=== PATIENT | male | born 2000 | race Caucasian/White ===

== ENCOUNTER 2020-02-12 15:26 | Inpatient (IN) | payer OTHER ==
[~2020-02-12] VITALS: Ht 185.4 cm; Wt 82.6 kg
[2020-02-12] MEDS ORDERED: IBUPROFEN 400 MG TABLET PO PRN (18:15)
[2020-02-12] MEDS ORDERED: POLYETHYLENE GLYCOL 3350 17 GM PACKET PO PRN ×2 (18:15→21:00)
[2020-02-12] MEDS ORDERED: OxyCODONE HCL 5 MG IR TABLET PO PRN (18:15)
[2020-02-12] MEDS ORDERED: ONDANSETRON HCL 4 MG TABLET PO PRN ×2 (18:15→21:00)
[2020-02-12 18:20] VITALS: BP 130/68
[2020-02-12] MEDS ORDERED: *PATIENT'S OWN MED [ENTER DRUG, DOSE, FREQUENCY IN COMMENTS] CLINICAL ONE (19:00)
[2020-02-12] MEDS: DOCUSATE SODIUM 100 MG CAPSULE PO SCH (21:00)
[2020-02-12] MEDS ORDERED: DOCUSATE SODIUM 100 MG CAPSULE PO SCH (21:00)
[2020-02-12] MEDS ORDERED: SENNA 187 MG TABLET PO SCH (21:00)
[2020-02-12] MEDS ORDERED: GABAPENTIN 300 MG CAPSULE PO SCH (21:00)
[2020-02-12] MEDS: ACETAMINOPHEN 325 MG TABLET PO SCH (21:13)
[2020-02-12] MEDS: GABAPENTIN 300 MG CAPSULE PO SCH (21:14)
[2020-02-12] MEDS: OxyCODONE HCL 5 MG IR TABLET PO PRN (22:11)
[2020-02-12 23:07] VITALS: BP 131/83
[2020-02-12] MEDS: IBUPROFEN 400 MG TABLET PO PRN (23:07)
[2020-02-13] MEDS: ACETAMINOPHEN 325 MG TABLET PO SCH ×3 (05:43→18:19)
[2020-02-13] MEDS: OxyCODONE HCL 5 MG IR TABLET PO PRN ×4 (05:43→20:46)
[2020-02-13 07:28] VITALS: BP 128/89
[2020-02-13] MEDS ORDERED: ENOXAPARIN SODIUM 40 MG/0.4 ML PF SYRINGE SQ SCH (09:00)
[2020-02-13] MEDS: DOCUSATE SODIUM 100 MG CAPSULE PO SCH ×2 (09:00→20:59)
[2020-02-13] MEDS: GABAPENTIN 300 MG CAPSULE PO SCH ×3 (09:36→20:46)
[2020-02-13] MEDS: ENOXAPARIN SODIUM 40 MG/0.4 ML PF SYRINGE SQ SCH (09:37)
[2020-02-13] MEDS: IBUPROFEN 400 MG TABLET PO PRN (13:18)
[2020-02-13 14:03] LABS: BASOPHILS % (AUTO) 0.5 % (0.0-2.0); EOSINOPHILS % (AUTO) 1.3 % (1.0-6.0); HEMATOCRIT 37.1 % (41-53); HEMOGLOBIN 12.7 g/dL (13.5-17.5); LYMPHOCYTES # (AUTO) 1.2 K/uL (1.0-4.8); LYMPHOCYTES % (AUTO) 10.4 % (22.0-44.0); MEAN CORPUSCULAR HEMOGLOBIN 30.8 pg (26.0-34.0); MEAN CORPUSCULAR HGB CONC 34.1 G/dL (31.0-37.0); MEAN CORPUSCULAR VOLUME 90 fL (80-100); MONOCYTES # (AUTO) 1.1 K/uL (0.1-1.0); MONOCYTES % (AUTO) 9.3 % (2.0-9.0); NEUTROPHILS # (AUTO) 9.3 K/uL (1.8-7.7); NEUTROPHILS % (AUTO) 78.5 % (40.0-70.0); PLATELET COUNT (AUTO) 253 K/uL (150-450); RED BLOOD CELL COUNT(AUTO) 4.11 MIL/uL (4.50-5.90); RED CELL DISTRIBUTION WIDTH 12.2 % (11.5-14.5)
[2020-02-13 15:01] LABS: ALANINE AMINOTRANSFERASE 25 U/L (12-78); ALBUMIN 3.4 g/dL (3.4-5.0); ALKALINE PHOSPHATASE 70 U/L (46-116); ANION GAP 10 mmol/L (8-16); ASPARTATE AMINOTRANSFERASE 16 U/L (15-37); BILIRUBIN,TOTAL 0.7 mg/dL (0.1-1.0); CALCIUM, TOTAL 8.4 mg/dL (8.8-10.5); CARBON DIOXIDE 26 mmol/L (22-29); CHLORIDE 99 mmol/L (98-107); CREATININE 1.03 mg/dL (0.60-1.30); GLOMERULAR FILTR. RATE CALC > 60 mL/min (>60); GLUCOSE,RANDOM 90 mg/dL (70-110); POTASSIUM 3.9 mmol/L (3.5-5.1); SODIUM SERUM 135 mmol/L (136-145); TOTAL PROTEIN, SERUM 6.9 g/dL (6.4-8.2); UREA NITROGEN, BLOOD 19 mg/dL (7-18)
[2020-02-13 15:53] VITALS: BP_SYST 111; BP_SYST 136; BP_DIAS 71; BP_DIAS 74
[2020-02-13] MEDS: SENNA 187 MG TABLET PO SCH (20:59)
[2020-02-13] MEDS ORDERED: ACETAMINOPHEN 325 MG TABLET PO SCH (22:00)
[2020-02-14 00:47] VITALS: BP 137/88
[2020-02-14] MEDS: ACETAMINOPHEN 325 MG TABLET PO SCH ×4 (00:47→16:16)
[2020-02-14] MEDS: OxyCODONE HCL 5 MG IR TABLET PO PRN ×3 (00:47→09:24)
[2020-02-14 07:55] VITALS: BP 127/73
[2020-02-14] MEDS: DOCUSATE SODIUM 100 MG CAPSULE PO SCH ×2 (09:00→19:37)
[2020-02-14] MEDS: GABAPENTIN 400 MG CAPSULE PO SCH ×3 (09:24→19:37)
[2020-02-14] MEDS: ENOXAPARIN SODIUM 40 MG/0.4 ML PF SYRINGE SQ SCH (09:25)
[2020-02-14 09:29] LABS: BASOPHILS % (AUTO) 0.4 % (0.0-2.0); EOSINOPHILS % (AUTO) 1.9 % (1.0-6.0); HEMATOCRIT 38.7 % (41-53); HEMOGLOBIN 13.1 g/dL (13.5-17.5); LYMPHOCYTES # (AUTO) 1.7 K/uL (1.0-4.8); LYMPHOCYTES % (AUTO) 14.4 % (22.0-44.0); MEAN CORPUSCULAR HEMOGLOBIN 30.6 pg (26.0-34.0); MEAN CORPUSCULAR HGB CONC 33.7 G/dL (31.0-37.0); MEAN CORPUSCULAR VOLUME 91 fL (80-100); MONOCYTES # (AUTO) 1.2 K/uL (0.1-1.0); MONOCYTES % (AUTO) 10.4 % (2.0-9.0); NEUTROPHILS # (AUTO) 8.4 K/uL (1.8-7.7); NEUTROPHILS % (AUTO) 72.9 % (40.0-70.0); PLATELET COUNT (AUTO) 276 K/uL (150-450); RED BLOOD CELL COUNT(AUTO) 4.27 MIL/uL (4.50-5.90); RED CELL DISTRIBUTION WIDTH 12.2 % (11.5-14.5)
[2020-02-14 10:00] LABS: ANION GAP 7 mmol/L (8-16); CALCIUM, TOTAL 8.8 mg/dL (8.8-10.5); CARBON DIOXIDE 32 mmol/L (22-29); CHLORIDE 101 mmol/L (98-107); CREATININE 0.93 mg/dL (0.60-1.30); GLOMERULAR FILTR. RATE CALC > 60 mL/min (>60); GLUCOSE,RANDOM 95 mg/dL (70-110); SODIUM SERUM 140 mmol/L (136-145); UREA NITROGEN, BLOOD 15 mg/dL (7-18)
[2020-02-14 16:16] VITALS: BP 128/90
[2020-02-14] MEDS: SENNA 187 MG TABLET PO SCH (19:37)
[2020-02-14] MEDS: IBUPROFEN 400 MG TABLET PO PRN (19:37)
[2020-02-15] MEDS: ACETAMINOPHEN 325 MG TABLET PO SCH ×4 (00:52→17:43)
[2020-02-15 02:00] VITALS: BP 133/78
[2020-02-15 07:29] VITALS: BP 136/55
[2020-02-15] MEDS: ENOXAPARIN SODIUM 40 MG/0.4 ML PF SYRINGE SQ SCH (10:59)
[2020-02-15] MEDS: DOCUSATE SODIUM 100 MG CAPSULE PO SCH ×2 (11:00→20:41)
[2020-02-15] MEDS: GABAPENTIN 400 MG CAPSULE PO SCH ×3 (11:01→20:42)
[2020-02-15] MEDS ORDERED: MELATONIN 3 MG TABLET PO PRN (15:00)
[2020-02-15 15:04] VITALS: BP 129/84
[2020-02-15] MEDS: SENNA 187 MG TABLET PO SCH (20:44)
[2020-02-16] MEDS: ACETAMINOPHEN 325 MG TABLET PO SCH ×4 (00:56→17:43)
[2020-02-16 05:00] VITALS: BP 136/94
[2020-02-16 08:15] VITALS: BP 131/86
[2020-02-16] MEDS: GABAPENTIN 400 MG CAPSULE PO SCH ×3 (08:33→20:35)
[2020-02-16] MEDS: ENOXAPARIN SODIUM 40 MG/0.4 ML PF SYRINGE SQ SCH (08:34)
[2020-02-16] MEDS: DOCUSATE SODIUM 100 MG CAPSULE PO SCH ×2 (08:34→20:35)
[2020-02-16] MEDS: OxyCODONE HCL 5 MG IR TABLET PO PRN (10:14)
[2020-02-16] MEDS: IBUPROFEN 400 MG TABLET PO PRN (14:13)
[2020-02-16 15:20] VITALS: BP 128/81
[2020-02-16] MEDS: SENNA 187 MG TABLET PO SCH (20:35)
[2020-02-17 00:23] VITALS: BP 146/86
[2020-02-17] MEDS: ACETAMINOPHEN 325 MG TABLET PO SCH ×4 (05:41→17:41)
[2020-02-17 07:14] VITALS: BP 136/89
[2020-02-17] MEDS: ENOXAPARIN SODIUM 40 MG/0.4 ML PF SYRINGE SQ SCH (08:17)
[2020-02-17] MEDS: GABAPENTIN 400 MG CAPSULE PO SCH ×3 (08:18→20:02)
[2020-02-17] MEDS: DOCUSATE SODIUM 100 MG CAPSULE PO SCH ×2 (08:18→20:05)
[2020-02-17 08:32] LABS: BASOPHILS % (AUTO) 0.8 % (0.0-2.0); EOSINOPHILS % (AUTO) 2.4 % (1.0-6.0); HEMATOCRIT 36.4 % (41-53); HEMOGLOBIN 12.5 g/dL (13.5-17.5); LYMPHOCYTES # (AUTO) 1.8 K/uL (1.0-4.8); LYMPHOCYTES % (AUTO) 19.5 % (22.0-44.0); MEAN CORPUSCULAR HEMOGLOBIN 31.1 pg (26.0-34.0); MEAN CORPUSCULAR HGB CONC 34.2 G/dL (31.0-37.0); MEAN CORPUSCULAR VOLUME 91 fL (80-100); MONOCYTES # (AUTO) 0.8 K/uL (0.1-1.0); MONOCYTES % (AUTO) 8.2 % (2.0-9.0); NEUTROPHILS # (AUTO) 6.5 K/uL (1.8-7.7); NEUTROPHILS % (AUTO) 69.1 % (40.0-70.0); PLATELET COUNT (AUTO) 377 K/uL (150-450); RED BLOOD CELL COUNT(AUTO) 4.01 MIL/uL (4.50-5.90); RED CELL DISTRIBUTION WIDTH 12.2 % (11.5-14.5)
[2020-02-17] MEDS: OxyCODONE HCL 5 MG IR TABLET PO PRN (10:52)
[2020-02-17 15:20] VITALS: BP 132/82
[2020-02-17] MEDS: SENNA 187 MG TABLET PO SCH (20:05)
[2020-02-18 05:40] VITALS: BP 132/81
[2020-02-18] MEDS: ACETAMINOPHEN 325 MG TABLET PO SCH ×4 (05:42→17:59)
[2020-02-18 07:25] VITALS: BP 132/66
[2020-02-18] MEDS: GABAPENTIN 400 MG CAPSULE PO SCH ×3 (07:42→20:03)
[2020-02-18] MEDS: DOCUSATE SODIUM 100 MG CAPSULE PO SCH ×3 (07:42→20:05)
[2020-02-18] MEDS: ENOXAPARIN SODIUM 40 MG/0.4 ML PF SYRINGE SQ SCH (07:43)
[2020-02-18 15:44] VITALS: BP 130/82
[2020-02-18] MEDS: SENNA 187 MG TABLET PO SCH (20:05)
[2020-02-19 00:10] VITALS: BP 123/65
[2020-02-19] MEDS: ACETAMINOPHEN 325 MG TABLET PO SCH ×4 (00:12→18:00)
[2020-02-19] MEDS ORDERED: OXYC5 PO (04:03)
[2020-02-19] MEDS ORDERED: GABA-1201 PO (04:03)
[2020-02-19] MEDS ORDERED: DOCU-275 PO (04:03)
[2020-02-19] MEDS ORDERED: IBUP-1506 PO (04:03)
[2020-02-19] MEDS ORDERED: ACET-2247 PO (04:03)
[2020-02-19] MEDS: DOCUSATE SODIUM 100 MG CAPSULE PO SCH ×2 (09:00→20:12)
[2020-02-19 09:33] VITALS: BP 124/68
[2020-02-19] MEDS: GABAPENTIN 400 MG CAPSULE PO SCH ×3 (09:33→20:08)
[2020-02-19] MEDS: IBUPROFEN 400 MG TABLET PO PRN (09:33)
[2020-02-19 15:24] VITALS: BP 143/86
[2020-02-19] MEDS: SENNA 187 MG TABLET PO SCH (20:12)
[2020-02-19 23:30] VITALS: BP 137/90
[2020-02-20] MEDS: ACETAMINOPHEN 325 MG TABLET PO SCH ×2 (00:26→06:06)
[2020-02-20 08:00] VITALS: BP 129/85
[2020-02-20] MEDS: DOCUSATE SODIUM 100 MG CAPSULE PO SCH (09:00)
[2020-02-20] MEDS: GABAPENTIN 400 MG CAPSULE PO SCH (09:17)
== END 2020-02-20 14:23 | disposition home or self-care (01) | DRG 914 ==
LOC: 4E 17:45 → EDSEX 17:45 → 2WR 02-15 12:21 → UNDODISIN 02-20 14:23
PROVIDERS: ADMIT Physical Medicine & Rehabilitation; ATTEND Physical Medicine & Rehabilitation
DX: S09.90XA Unspecified injury of head, initial encounter (principal); S32.049A Unspecified fracture of fourth lumbar vertebra, initial encounter for closed fracture; S52.571A Other intraarticular fracture of lower end of right radius, initial encounter for closed fracture; E87.1 Hypo-osmolality and hyponatremia; S62.001A Unspecified fracture of navicular [scaphoid] bone of right wrist, initial encounter for closed fracture; S62.141A Displaced fracture of body of hamate [unciform] bone, right wrist, initial encounter for closed fracture; K59.03 Drug induced constipation; S63.254A Unspecified dislocation of right ring finger, initial encounter; T40.2X5A Adverse effect of other opioids, initial encounter; D72.829 Elevated white blood cell count, unspecified; E83.51 Hypocalcemia
CPT/HCPCS: 87081; 92523; 97110; 97116; 97162; 97165; 97530; 97535; 99366; J1650; Q0162